=== PATIENT | male | born 2000 | race Caucasian/White ===

== ENCOUNTER 2024-08-08 08:23 | Emergency (ER) | payer BC, OTHER ==
[2024-08-08] MEDS: Ketorolac 30 MG/ML SDV IM ONE (08:56)
[2024-08-08] MEDS: Orphenadrine 60 MG/2 ML Inj IM ONE (08:56)
[2024-08-08] MEDS: Acetaminophen 500 MG Tab PO ONE (08:56)
== END 2024-08-08 09:52 | disposition home or self-care (01) ==
LOC: DL.ED 08:23
DX: M25.512 Pain in left shoulder (principal)
CPT/HCPCS: 73030; 96372; 99283; A9270; J1885; J2360